=== PATIENT | male | born 1985 | race Caucasian/White ===

== ENCOUNTER 2024-09-03 08:42 | Emergency (ER) | payer BC ==
[~2024-09-03] VITALS: Ht 180.3 cm; Wt 118.2 kg
[2024-09-03 08:56] VITALS: TEMP 97.2
[2024-09-03 09:22] LABS: BASOPHILS # (AUTO) 0.1 X10'3 (0-0.2); EOSINOPHILS # (AUTO) 0.2 X10'3 (0-0.9); EOSINOPHILS % (AUTO) 3.2 % (0-6); HEMATOCRIT 44.2 % (42.0-52.0); HEMOGLOBIN 15.4 g/dl (14.0-17.9); LYMPHOCYTES # (AUTO) 1.3 X10'3 (1.1-4.8); LYMPHOCYTES % (AUTO) 20.8 % (21-51); MEAN CORPUSCULAR HEMOGLOBIN 30.5 PG (27.0-31.0); MEAN CORPUSCULAR HGB CONC 34.9 g/dL (33.0-36.5); MEAN CORPUSCULAR VOLUME 87.5 FL (78-98); MONOCYTES # (AUTO) 0.6 X10'3 (0-0.9); MONOCYTES % (AUTO) 8.8 % (2-12); NEUTROPHILS # (AUTO) 4.2 X10'3 (1.8-7.7); NEUTROPHILS % (AUTO) 66.2 % (42-75); PLATELET COUNT 255 X10'3 (140-440); RED BLOOD COUNT 5.05 X10'6 (4.70-6.10); RED CELL DISTRIBUTION WIDTH 13.1 % (11.5-14.5); WHITE BLOOD COUNT 6.3 X10'3 (4.5-11.0)
[2024-09-03 09:41] LABS: ALANINE AMINOTRANSFERASE 42 U/L (12-78); ALBUMIN/GLOBULIN RATIO 1.3 (1.1-1.5); ALKALINE PHOSPHATASE 90 IU/L (46-116); ANION GAP 7 (8-16); ASPARTATE AMINO TRANSFERASE 19 U/L (10-37); BILIRUBIN,TOTAL 0.5 MG/DL (0.1-1.0); BLOOD UREA NITROGEN 14 MG/DL (7-18); BUN/CREATININE RATIO 22.2 (10.0-20.0); CALCIUM 8.8 MG/DL (8.5-10.1); CHLORIDE 106 MMOL/L (99-107); CREATININE 0.63 MG/DL (0.60-1.10); GLUCOSE 100 MG/DL (70-104); POTASSIUM 4.1 MMOL/L (3.5-5.1); SODIUM 139 MMOL/L (135-145); TOTAL CARBON DIOXIDE 26.5 MMOL/L (24-32); TOTAL PROTEIN 7.1 G/DL (6.4-8.2); eCRCL 166 ML/MIN; eGFR > 90 ML/MIN
[2024-09-03 09:50] LABS: PRO BRAIN NATRIURETIC PEPTIDE 52 PG/ML (0-125)
[2024-09-03 10:43] VITALS: BP 151/88; PULSE 60; RESP 18; O2SAT 99
[2024-09-03] MEDS ORDERED: LISI5TAB22 PO (10:48)
--- NOTE | 2024-09-03 10:48 | Physician Documentation ---
History of Present Illness ~ Chief Complaint: Hypertension Stated Complaint: HIGH BLOOD PRESSURE Time Seen by MD: 10:40 HPI This is a 39-year-old gentleman with no significant past medical history who presents for evaluation of elevated blood pressure reading and blurry visi on/lightheadedness. He did not attempt to treat it by taking his girlfriend metoprolol. No obvious trigger provocation. The particular palliating or aggravating factors. This never happened in the past. He denies any chest pain or difficulty breathing, denies any focal neurologic deficits. No PCP at this time. Medication Reconciliation Allergies: Uncoded Allergies: STEROID (Adverse Reaction, Mild, 09/03/24) states rash, maybe cortisone. Review of Systems ROS 10 point review of systems was performed and unless noted above in HPI is negative for acute process/complaint. Physical Exam Vital Signs: Temperature: 97.2, Heart Rate: 60, Respiratory Rate: 18, BP: 151/88, Pulse Oximetry: 99, Weight: 118.180 Oxygen Flow Rate: 0 Physical Exam Physical examination: GENERAL: Awake, alert, oriented, GCS 15, no apparent distress, non-toxic appearing, answers questions, follows commands appropriately. HEENT: Atraumatic, normocephalic, pupils equal, extraocular muscles intact Active gross movements, sclerae anicteric, mucus membranes moist, no stridor. NECK: Midline, no JVD CARDIOVASCULAR: Good skin perfusion without evidence of pallor, mottling. PULMONARY: Nonlabored, symmetric chest rise, no audible wheezing, no accessory muscle use, no respiratory distress, speaking in full sentences. GASTROINTESTINAL: Not distended. NEUROLOGIC: Lucid with normal mental status. Normal facial symmetry. Moves all extremities symmetrically and with purpose. No truncal ataxia. Speech is fluid without evidence of dysarthria or aphasia, no focal deficits appreciated. EXTREMITIES: Acute deformities Skin: warm, dry PSYCHIATRIC: Normal affect, normal insight, normal concentration. Focused exam: [] Progress Results/Orders Results/Orders Completed Orders - ROXANA SOSA DO Cbc/Diff (09/03/24 09:01) PBNP (09/03/24 09:01) CMP (09/03/24 09:01) Vital Signs 09/03/24 09/03/24 08:56 10:43 Temp 97.2 Pulse 53 60 Resp 16 18 B/P (MAP) 129/79 151/88 (109) Pulse Ox 100 99 O2 Flow Rate 0 Laboratory Tests Test 09/03/24 09:15 White Blood Count 6.3 Red Blood Count 5.05 Hemoglobin 15.4 Hematocrit 44.2 Mean Corpuscular Volume 87.5 Mean Corpuscular Hemoglobin 30.5 Mean Corpuscular Hemoglobin Concent 34.9 Red Cell Distribution Width 13.1 Platelet Count 255 Mean Platelet Volume 8.0 Neutrophils (%) (Auto) 66.2 Lymphocytes (%) (Auto) 20.8 L Monocytes (%) (Auto) 8.8 Eosinophils (%) (Auto) 3.2 Basophils (%) (Auto) 1.0 Neutrophils # (Auto) 4.2 Lymphocytes # (Auto) 1.3 Monocytes # (Auto) 0.6 Eosinophils # (Auto) 0.2 Basophils # (Auto) 0.1 CBC Comment Sodium Level 139 Potassium Level 4.1 Chloride Level 106 Carbon Dioxide Level 26.5 Anion Gap 7 L Blood Urea Nitrogen 14 Creatinine 0.63 Estimated GFR/1.73 m2 > 90 BUN/Creatinine Ratio 22.2 H Glucose Level 100 Calcium Level 8.8 Total Bilirubin 0.5 Aspartate Amino Transf (AST/SGOT) 19 Alanine Aminotransferase (ALT/SGPT) 42 Alkaline Phosphatase 90 Pro-B-Type Natriuretic Peptide 52 Total Protein 7.1 Albumin 4.0 Globulin 3.1 Albumin/Globulin Ratio 1.3 Chemistry Comments Medical Decision Making Findings Facility Status: ED Holds, [facility] process The plan was discussed with the patient, who demonstrates clear understanding of the plan and is in agreement with the plan unless otherwise noted in the chart. All questions have been answered, all concerns were addressed unless otherwise documented. I was available throughout their ED stay for frequent reassessment and questions. Differential Diagnoses (considered and possible or likely): [Elevated blood pressure reading, hypotension, hypertensive urgency, unlikely to be hypertensive emergency.] ??Differential Diagnoses (considered and unlikely, not requiring evaluation currently): [No evidence of focal neurologic deficits to suspect a stroke] MDM Data Please see HPI for the following: Independent Historians and external Records Review. Historian: [Patient] Independent Historians: ?[None] Medication Management: [Reviewed medication list] Social History and determinants: [Reviewed] Please see the body of the note for the following: Any independent interpretations of ECG, imaging studies. All vitals signs/haemodynamics, ordered tests were independently reviewed and interpreted by myself. Nursing triage complaint and vitals reviewed, additional nursing notes were reviewed as available and I agree unless otherwise noted or documented in contradiction in the chart Vital Signs: Independently reviewed Labs: Independently interpreted Imaging: Independently interpreted Old Medical Records: Independently reviewed, see HPI for relevant summary and information Pulse Oximetry: [100%] interpreted as [normal on room air] by me Additionally notably showing: [In fact hypotensive, otherwise hemodynamically stable. Laboratory workup was unremarkable without evidence end-organ damage.] Tests considered but not ordered include: [Imaging does not appear to be necessary in the setting] Social Determinants of Health Impact: Patient was evaluated in [facility], or [facility] [place] access to healthcare due to below par ratio of patient to medical providers. [] Comorbid Conditions Impacting Present Evaluation and Care/Treatment: [None] Management Discussions with other Healthcare Providers: [None] Treatment and Disposition Medication Management (Given or considered): []. See EMR for details Consideration for Hospitalization/Escalation/Deescalation of Care: Admission for observation has been considered, [however the patient is able to tolerate p.o., their symptoms are controlled, they are able to rely on oral medications, and their chief complaint/diagnosis can be managed on outpatient basis.] ?ED Course:?[No clinical deterioration] ?Shared decision making:?[Patient is hemodynamically stable for discharge home with follow with their primary care provider. [ ] Specific and cautious return precautions provided and discussed with full understanding. Any incidental findings were also discussed and follow up recommendations given. [] All questions answered. Patient/family were able to verbalize back return precautions. Patient/family agree to plan. Copies of imaging and laboratory studies were provided.] Code status:?FULL Please see the full Electronic Medical Record for full details of nursing documentation, medications list, other records of complete past medical history and conditions, vital signs, laboratory studies, and any radiologic study interpretations by radiologists. Portions of this note were completed using [employer] dictation software and as a result there may exist minor errors in spelling. I have reviewed elements of past family and social history and agree as included in note. Departure Disposition: HOME / SELF CARE / HOMELESS Impression: Primary Impression: Benign hypertension Condition: Improved Discharge Instructions: Hypertension, Adult Referrals: NO PRIMARY CARE PROVIDER (PCP) Prescriptions Lisinopril (Lisinopril) 5 Mg Tablet 1 TAB PO DAILY for 30 Days, #30 TAB 0 Refills Prov: ROXANA SOSA DO 09/03/24 Education Educated: Patient Educated regarding: diagnosis, treatment, prognosis, need for follow up (Patient [facility]) Signature Scribe Signature: No scribe Attestation: This note accurately reflects clinical decisions, work performed by myself, DO SHEILA Dykes NICHOLAS M DO September 03, 2024 10:48
== END 2024-09-03 10:54 | disposition home or self-care (01) ==
LOC: ER 08:43
DX: I10 Essential (primary) hypertension (principal); I16.1 Hypertensive emergency
CPT/HCPCS: 36415; 80053; 83880; 85025; 99283